=== PATIENT | female | born 1975 | race Hispanic/Latino ===

== ENCOUNTER 2021-08-25 14:40 | Inpatient (IN) | payer BC, MEDICAID ==
[~2021-08-25] VITALS: Ht 170.2 cm; Wt 64.9 kg
[2021-08-25 16:31] LABS: EOSINOPHILS % (AUTO) 0.8 % (0.0-8.0); HEMATOCRIT 26.5 % (36-48); MEAN CORPUSCULAR HEMOGLOBIN 18.2 pg (27.0-33.0); MEAN CORPUSCULAR HGB CONC 28.3 g/dL (32.0-36.0); MEAN CORPUSCULAR VOLUME 64.3 fL (79-99); MONOCYTES % (AUTO) 10.1 % (3.0-13.0); NEUTROPHILS % (AUTO) 60.9 % (40.0-77.0); PLATELET COUNT (AUTO) 230 K/uL (130-400); RED BLOOD CELL COUNT(AUTO) 4.12 MIL/uL (4.00-5.50); RED CELL DISTRIBUTION WIDTH 18.4 % (11.0-15.5); WHITE BLOOD COUNT (AUTO) 4.9 K/uL (4.8-10.8)
[2021-08-25 16:43] LABS: CREATININE 0.6 mg/dL (0.5-1.5); POTASSIUM 3.7 mmol/L (3.5-5.1)
[2021-08-25 16:53] LABS: ALBUMIN 3.5 g/dL (3.5-5.0); BILIRUBIN,TOTAL 0.4 mg/dL (0.2-1.0); TOTAL PROTEIN, SERUM 6.6 g/dL (6.0-8.3)
[2021-08-25] MEDS ORDERED: ACETAMINOPHEN 325 MG TAB PO PRN ×2 (17:30)
[2021-08-25] MEDS ORDERED: DIPHENHYDRAMINE HCL 25 MG CAPSULE PO PRN (17:30)
[2021-08-25] MEDS ORDERED: 0.9%NACL 1000ML 1,000 ML IV SCH (17:30)
[2021-08-25] MEDS ORDERED: ONDANSETRON 4MG INJ IV PRN (17:30)
[2021-08-25] MEDS ORDERED: ZOSYN 3.375GM+NS 50ML 3.38 GM in 0.9%NACL 50ML 50 ML IV SCH (18:00)
[2021-08-25 18:19] LABS: BILIRUBIN,DIRECT 0.1 mg/dL (0.0-0.3)
[2021-08-25 18:21] LABS: % IRON SATURATION 2.2 % (22-44)
[2021-08-25 18:30] VITALS: BP 106/71
[2021-08-25 18:49] LABS: APPEARANCE,URINE Cloudy (CLEAR); BILIRUBIN,URINE Negative (NEGATIVE); COLOR,URINE Yellow (YELLOW); GLUCOSE, URINE (UA) Negative (NEGATIVE); KETONES,URINE Trace mg/dL (NEGATIVE); LEUKOCYTE ESTERASE ,URINE Small (NEGATIVE); NITRATE,URINE Negative (NEGATIVE); OCCULT BLOOD,URINE Negative (NEGATIVE); PH,URINE 6.5 (5.0-8.0); PROTEIN,URINE Negative (NEGATIVE)
[2021-08-25 18:57] LABS: AMPHET/METH SCREEN,URINE NEGATIVE (NEGATIVE); BARBITURATE SCREEN, URINE NEGATIVE (NEGATIVE); BENZODIAZEPINES SCREEN,URINE NEGATIVE (NEGATIVE); CANNABINOID SCREEN,URINE NEGATIVE (NEGATIVE); COCAINE SCREEN,URINE NEGATIVE (NEGATIVE); OPIATE SCREEN,URINE NEGATIVE (NEGATIVE); PHENCYCLIDINE SCREEN,URINE NEGATIVE (NEGATIVE)
[2021-08-25 19:08] LABS: BACTERIA,URINE Moderate /HPF (None Seen); MUCUS,URINE Moderate LPF (None Seen); SQUAMOUS EPITHELIAL CELL,UR Few /HPF (0-2)
[2021-08-25] MEDS: ZOSYN 3.375GM +NS 50ML IV SCH (19:15)
[2021-08-25] MEDS: LACTATED RINGERS 1000ML 1,000 ML IV SCH (19:15)
[2021-08-25] MEDS: 0.9%NACL 50ML 50 ML IV SCH (19:15)
[2021-08-25] MEDS: FAMOTIDINE 20MG VIAL IV SCH (21:10)
[2021-08-25] MEDS ORDERED: PHENOL 177 ML BOTTLE PO PRN (22:00)
[2021-08-25 23:25] VITALS: BP 108/65
[2021-08-26] MEDS: 0.9%NACL 50ML 50 ML IV SCH ×3 (01:23→14:30)
[2021-08-26] MEDS: ZOSYN 3.375GM +NS 50ML IV SCH ×3 (01:23→14:30)
[2021-08-26 03:09] VITALS: BP 108/66
[2021-08-26] MEDS: LACTATED RINGERS 1000ML 1,000 ML IV SCH ×3 (04:00→23:28)
[2021-08-26 04:35] LABS: HEMATOCRIT 25.8 % (36-48); MEAN CORPUSCULAR HEMOGLOBIN 18.3 pg (27.0-33.0); MEAN CORPUSCULAR HGB CONC 28.3 g/dL (32.0-36.0); MEAN CORPUSCULAR VOLUME 64.7 fL (79-99); PLATELET COUNT (AUTO) 209 K/uL (130-400); RED BLOOD CELL COUNT(AUTO) 3.99 MIL/uL (4.00-5.50); RED CELL DISTRIBUTION WIDTH 18.5 % (11.0-15.5); WHITE BLOOD COUNT (AUTO) 4.8 K/uL (4.8-10.8)
[2021-08-26 05:01] LABS: ALBUMIN 3.2 g/dL (3.5-5.0); BILIRUBIN,TOTAL 0.4 mg/dL (0.2-1.0); CREATININE 0.7 mg/dL (0.5-1.5); POTASSIUM 3.5 mmol/L (3.5-5.1); TOTAL PROTEIN, SERUM 6.3 g/dL (6.0-8.3)
[2021-08-26 07:35] VITALS: BP 104/86
[2021-08-26] MEDS: FAMOTIDINE 20MG VIAL IV SCH ×2 (09:06→20:31)
[2021-08-26 11:30] VITALS: BP 103/66
[2021-08-26 15:35] VITALS: BP 99/60
[2021-08-26 20:00] VITALS: BP 100/66
[2021-08-27] VITALS: BP 106/58
[2021-08-27] MEDS: ZOSYN 3.375GM +NS 50ML IV SCH ×3 (02:30→18:38)
[2021-08-27] MEDS: 0.9%NACL 50ML 50 ML IV SCH ×3 (02:30→18:40)
[2021-08-27 04:00] VITALS: BP 101/53
[2021-08-27 05:33] LABS: BASOPHILS % (AUTO) 0.9 % (0.0-5.0); EOSINOPHILS % (AUTO) 1.3 % (0.0-8.0); HEMATOCRIT 26.5 % (36-48); LYMPHOCYTES % (AUTO) 25.3 % (21.0-51.0); MEAN CORPUSCULAR HEMOGLOBIN 18.4 pg (27.0-33.0); MEAN CORPUSCULAR HGB CONC 28.3 g/dL (32.0-36.0); MONOCYTES % (AUTO) 10.6 % (3.0-13.0); NEUTROPHILS % (AUTO) 61.7 % (40.0-77.0); PLATELET COUNT (AUTO) 235 K/uL (130-400); RED BLOOD CELL COUNT(AUTO) 4.08 MIL/uL (4.00-5.50); RED CELL DISTRIBUTION WIDTH 18.2 % (11.0-15.5); WHITE BLOOD COUNT (AUTO) 4.5 K/uL (4.8-10.8)
[2021-08-27 05:51] LABS: ALBUMIN 3.4 g/dL (3.5-5.0); BILIRUBIN,TOTAL 0.4 mg/dL (0.2-1.0); CREATININE 0.7 mg/dL (0.5-1.5); POTASSIUM 3.6 mmol/L (3.5-5.1); TOTAL PROTEIN, SERUM 6.5 g/dL (6.0-8.3)
[2021-08-27 08:00] VITALS: BP 111/59
[2021-08-27] MEDS: FAMOTIDINE 20MG VIAL IV SCH ×2 (09:07→20:35)
[2021-08-27] MEDS: LACTATED RINGERS 1000ML 1,000 ML IV SCH ×2 (10:00→20:35)
[2021-08-27 12:00] VITALS: BP 89/58
[2021-08-27 16:00] VITALS: BP 104/65
[2021-08-27 20:00] VITALS: BP 92/54
[2021-08-28] VITALS: BP 98/54
[2021-08-28] MEDS: 0.9%NACL 50ML 50 ML IV SCH (02:12)
[2021-08-28] MEDS: ZOSYN 3.375GM +NS 50ML IV SCH (02:12)
[2021-08-28 04:00] VITALS: BP 91/58
[2021-08-28 06:44] LABS: EOSINOPHILS % (AUTO) 1.9 % (0.0-8.0); HEMATOCRIT 25.9 % (36-48); MEAN CORPUSCULAR HEMOGLOBIN 18.1 pg (27.0-33.0); MEAN CORPUSCULAR HGB CONC 27.4 g/dL (32.0-36.0); MEAN CORPUSCULAR VOLUME 65.9 fL (79-99); MONOCYTES % (AUTO) 11.1 % (3.0-13.0); NEUTROPHILS % (AUTO) 59.8 % (40.0-77.0); PLATELET COUNT (AUTO) 151 K/uL (130-400); RED BLOOD CELL COUNT(AUTO) 3.93 MIL/uL (4.00-5.50); RED CELL DISTRIBUTION WIDTH 18.1 % (11.0-15.5); WHITE BLOOD COUNT (AUTO) 4.8 K/uL (4.8-10.8)
[2021-08-28 07:54] LABS: ALBUMIN 3.1 g/dL (3.5-5.0); BILIRUBIN,TOTAL 0.3 mg/dL (0.2-1.0); CREATININE 0.8 mg/dL (0.5-1.5); POTASSIUM 3.8 mmol/L (3.5-5.1)
[2021-08-28] MEDS: FAMOTIDINE 20MG VIAL IV SCH (07:54)
[2021-08-28] MEDS: LACTATED RINGERS 1000ML 1,000 ML IV SCH (07:54)
[2021-08-28 08:00] VITALS: BP 86/64
[2021-08-28 12:00] VITALS: BP 97/58
[2021-08-28] MEDS ORDERED: CEFD300C3 PO (13:14)
== END 2021-08-28 15:35 | disposition home or self-care (01) | DRG 389 ==
LOC: EDH 14:40 → 3DH 17:03 → OBSVTOIN 17:03
PROVIDERS: ADMIT Internal Medicine; ATTEND Internal Medicine
DX: K56.609 Unspecified intestinal obstruction, unspecified as to partial versus complete obstruction (principal); N39.0 Urinary tract infection, site not specified; K31.84 Gastroparesis; K80.20 Calculus of gallbladder without cholecystitis without obstruction; D64.9 Anemia, unspecified; B96.20 Unspecified Escherichia coli [E. coli] as the cause of diseases classified elsewhere; Z86.16 Personal history of COVID-19; Z98.84 Bariatric surgery status
CPT/HCPCS: 36415; 74018; 80053; 80305; 81001; 81025; 82248; 82270; 83540; 83550; 83690; 84484; 85025; 85027; 86850; 86900; 86901; 87077; 87088; 87186; G0378; J2543; J3490; J7030; J7120